=== PATIENT | male | born 1965 ===

== ENCOUNTER → 2017-09-07 | Outpatient (CLI) | payer OTHER ==
[2014-07-28 16:30] VITALS: BP 145/92
--- NOTE | 2017-09-07 16:57 | KCIC ---
MR of the right elbow Indication: Weak organization development consultant. Pain at the posterolateral elbow, chronic. Technique: Standard multiplanar sequences are obtained. Findings: Comparison with February 28, 2014. Anterior: Biceps tendon and brachialis tendon are intact. Posterior: The triceps tendon and insertion are intact. Medial: Common flexor tendon and ulnar collateral ligament are intact. Lateral: Mild thickening and signal within the common extensor tendon compatible with tendinosis. No high-grade tear or rupture. No acute lateral ligament rupture. Fluid: No significant joint effusion. Joints: No advanced DJD. Bones: No focal lesion. No acute fracture. Screw artifact at the radial tuberosity. Soft tissues: Mild subcutaneous edema posteriorly. Ulnar nerve: Unremarkable Impression: 1. Biceps tendon reconstruction is intact. 2. Mild common extensor tendinosis. Electronically signed by: Christopher Koehler MD (09/07/2017 4:54 PM) [id number]
== END | disposition home or self-care (01) ==
LOC: KCIC MRI 15:02
PROVIDERS: ATTEND Plastic Surgery
DX: M25.521 Pain in right elbow (principal); R60.0 Localized edema
CPT/HCPCS: 73221